=== PATIENT | male | born 1955 | race Caucasian/White ===

== ENCOUNTER → 2019-11-30 | Outpatient (CLI) | payer BC, SELFPAY ==
--- NOTE | 2019-11-30 08:48 | CT_ITS ---
STUDY: CT MAXILLOFACIAL SINUSES REASON FOR EXAM: Male, 64 years old. NASAL POLYP RADIATION DOSAGE (If Supplied By Facility): CTDIvol = ( 33.06 ) mGy, DLP = ( 883.43 ) mGycm TECHNIQUE: The patient was scanned in a multi detector CT scanner. High resolution axial imaging was performed without the administration of intravenous contrast material. Sagittal and coronal images were reconstructed. Individualized dose optimization techniques were used for this CT. COMPARISON: None. FINDINGS: FRONTAL SINUSES: Mild mucosal thickening of the left frontal sinus. ETHMOIDAL SINUSES: Moderate mucosal thickening of the left ethmoid sinus and to a lesser extent on the right side. MAXILLARY SINUSES: Mild mucosal thickening of the maxillary sinuses bilaterally. No air-fluid levels are seen.. SPHENOIDAL SINUSES: Mild mucosal thickening of the right glenoid sinus. There is patency of the bilateral maxillary infundibuli and bilateral ostiomeatal complexes There is zabrina bullosa of the left middle turbinate. Normal bilateral inferior turbinates. Normal midline nasal septum. There is patency of the bilateral nasal airways. The visualized osseous structures are normal. The visualized bilateral orbital contents are normal. CT/Sinus/Facial Bone IMPRESSION: 1. Sinus disease as described above. 2. No air-fluid levels are seen. 3. 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 Electronically Signed: Zane Childress MD at 9:12 EDT Tel , Service support ,
== END | disposition home or self-care (01) ==
PROVIDERS: Referring Provider Otolaryngology; Visit Provider Otolaryngology
DX: J33.9 Nasal polyp, unspecified (principal)
CPT/HCPCS: 70486